=== PATIENT | female | born 1985 | race Two or more races ===

== ENCOUNTER 2024-03-14 21:01 | Emergency (ER) | payer OTHER ==
[~2024-03-14] VITALS: Ht 170.2 cm; Wt 69.9 kg
[2024-03-14] MEDS ORDERED: cloNIDine HCL 0.2 MG TABLET PO ONE (22:15)
[2024-03-14] MEDS ORDERED: CLONIDINE HCL 0.1 MG TABLET PO ONE (22:26)
[2024-03-14 23:10] LABS: HEMATOCRIT 36.3 % (36.0-45.00); HEMOGLOBIN 12.5 g/dL (12.0-15.00); MEAN CELL VOLUME 82.8 fL (80.00-100.00); MEAN CORPUSCULAR HEMOGLOBIN 28.5 pg (27.00-32.0); MEAN CORPUSCULAR HGB CONC 34.5 g/dl (32.0-36.0); PLATELET COUNT 290 K/uL (150-450); RED BLOOD COUNT 4.38 M/uL (4.00-6.00)
[2024-03-14 23:11] LABS: PH,URINE 6.5 (5.0-8.0); URINE APPEARANCE Clear; URINE BILIRRUBIN Negative (NEGATIVE); URINE BLOOD Large; URINE COLOR Orange; URINE LEUKOCYTE Trace; URINE NITRATE Negative; URINE PROTEIN 30 (NEGATIVE); URINE UROBILINOGEN 0.2 E.U./dl
[2024-03-14 23:15] LABS: URINE BACTERIA 147.4 uL (0.0-1933); URINE EPITHELIAL CELLS 8.6 uL (0.0-38.8); URINE RBC 714.4 uL (0.0-20.8); URINE WBC 16.9 uL (0.0-23.2)
[2024-03-14 23:39] LABS: URINE GLUCOSE 500 MG/DL (NEGATIVE)
[2024-03-15] MEDS ORDERED: CEPHALEXIN750 MG PO (00:53)
== END 2024-03-15 01:03 ==
LOC: ER 21:03
PROVIDERS: Emergency Medicine
DX: R31.9 Hematuria, unspecified (principal); N39.0 Urinary tract infection, site not specified; I10 Essential (primary) hypertension